=== PATIENT | female | born 1955 | race African-American/Black ===

== ENCOUNTER → 2018-01-03 | Outpatient (CLI) | payer OTHER | END | disposition home or self-care (01) | LOC: Rad HDHVI 15:36 | PROVIDERS: ATTEND Internal Medicine Cardiovascular Disease | DX: I34.0 Nonrheumatic mitral (valve) insufficiency (principal); I25.5 Ischemic cardiomyopathy; E87.6 Hypokalemia | CPT/HCPCS: 93306 ==

== ENCOUNTER → 2018-01-22 | Outpatient (CLI) | payer OTHER ==
[~2018-01-22] VITALS: Ht 165.1 cm; Wt 90.7 kg
[~2018-01-22] MED LIST: IOHEXOL 350 MG/ML 100ML IJ ONE
[2018-01-22 13:04] VITALS: BP 113/68
[2018-01-22 13:50] VITALS: BP 139/78
== END | disposition home or self-care (01) ==
LOC: Rad HDHVI 12:47
PROVIDERS: ATTEND Internal Medicine Cardiovascular Disease
DX: J43.2 Centrilobular emphysema (principal); R06.02 Shortness of breath
CPT/HCPCS: 71275; 78452; 82565; 93017; 96374; A9500; G0463; Q9967

== ENCOUNTER → 2019-11-16 | Outpatient (CLI) | payer OTHER ==
[~2019-11-16] VITALS: Ht 170.2 cm; Wt 93.0 kg
[~2019-11-16] MED LIST changes: +KETOROLAC TROMETH 30 MG/ML 1ML VIAL IV ONE; +KETOROLAC TROMETH 60MG/2ML VIAL ONE; +SODIUM CHLORIDE 0.9% 250 ML IV ONE
[2019-11-16 08:15] VITALS: BP 137/70
[2019-11-16 12:05] VITALS: BP 140/75
== END | disposition home or self-care (01) ==
LOC: Rad HDHVI 08:20
PROVIDERS: ATTEND Internal Medicine Cardiovascular Disease
DX: R94.4 Abnormal results of kidney function studies (principal); J44.9 Chronic obstructive pulmonary disease, unspecified; Z86.711 Personal history of pulmonary embolism
CPT/HCPCS: 36415; 71275; 78452; 82565; 93017; 93306; 96361; 96374; 96375; A9500; G0463; J1885; J7050; Q9967; 96360